=== PATIENT | female | born 1975 | race Caucasian/White ===

== ENCOUNTER → 2018-09-10 | Outpatient (CLI) | payer OTHER | LOC: M.RAD 09:29 | DX: M79.604 Pain in right leg (principal); M13.80 Other specified arthritis, unspecified site ==

== ENCOUNTER → 2018-10-22 | Outpatient (CLI) | payer OTHER ==
--- NOTE | 2018-10-23 09:47 | SLEEP ---
[address] [address] SLEEP STUDY REPORT Name: VANIA FLORES Room: [facility]#: [id number] Admission: 10/22/18 Attend Phys: Gilson Davalos MD Discharge: Date of : 79 Report #: [id number] THIS REPORT FOR: //name// CC: [facility] Physician staff This study has been reviewed in its entirety by a board certified sleep specialist DATE OF SERVICE: 10/22/2018 SLEEP STUDY ATTENDING PHYSICIAN: Dr. Gilson Davalos. The patient is 43 years old, who weighs 150 pounds with a BMI of 26.6. The patient's [place] score was 9. The patient underwent a diagnostic sleep study performed at [facility]. During the night study, the patient spent 416 minutes in bed and slept for 337 minutes with a sleep efficiency of 81%. Sleep latency was 37.5 minutes with a REM latency of 115.5 minutes. Overall, sleep architecture showed normal stage 1 and stage 2 sleep, increased slow wave sleep and normal REM sleep. During the night study, the patient had no apneas and 4 hypopneas. The patient's apnea-hypopnea index for the entire night was 0.7 per hour. REM index of 2.4 per hour and a supine index of 0 per hour. EKG monitoring revealed a mean heart rate of 53 beats per minute. No sustained arrhythmias observed. No clinically significant PLMS observed. Nocturnal oximetry study revealed an average oxygen saturation of 96% with a lowest of 88%. Due to low AHI, the patient did not meet the split night criteria for CPAP initiation. IMPRESSION: 1. No clinically significant sleep disordered breathing. The patient's AHI for the entire night was only 0.7 per hour. 2. No clinically significant nocturnal hypoxia. 3. No clinically significant [place] [address] SLEEP STUDY REPORT Name: ROCKVANIA Rosemary Room: [facility]#: [id number] Admission: 10/22/18 Attend Phys: Gilson Davalos MD Discharge: Date of : 79 Report #: [id number] RECOMMENDATIONS: 1. The patient did not meet the criteria for CPAP initiation. 2. Avoid S[employer] depressants. 3. Weight loss to the ideal body weight is also recommended. <ELECTRONICALLY SIGNED> By: Jhon Avila MD 10/23/18 0947 [id number] Avila MD /nt
== END ==
LOC: M.SLEEPLAB 19:58
DX: G47.30 Sleep apnea, unspecified (principal)